=== PATIENT | male | born 1945 | race Caucasian/White ===

== ENCOUNTER 2018-03-12 11:58 | Emergency (ER) | payer MEDICARE, OTHER ==
[~2018-03-12] VITALS: Ht 172.7 cm; Wt 83.9 kg
[2018-03-12] MEDS ORDERED: PRAMIPEXOLE DIHY1 MG PO (12:09)
[2018-03-12] MEDS ORDERED: CARBIDOPA-LEVO1 EAC4 PO (12:09)
== END 2018-03-12 13:11 | disposition home or self-care (01) ==
LOC: ED 11:58
PROC: 0HQGXZZ Repair Left Hand Skin, External Approach (ICD-10-PCS; principal; 2018-03-12)
DX: S61.215A Laceration without foreign body of left ring finger without damage to nail, initial encounter (principal); Z23 Encounter for immunization; Z88.2 Allergy status to sulfonamides; Z88.8 Allergy status to other drugs, medicaments and biological substances; Z79.899 Other long term (current) drug therapy; W26.0XXA Contact with knife, initial encounter
CPT/HCPCS: 12001; 90471; 90715; 99282

== ENCOUNTER 2018-07-02 20:17 | Emergency (ER) | payer MEDICARE, OTHER ==
[~2018-07-02] VITALS: Ht 406.4 cm; Wt 74.8 kg
[~2018-07-02 20:17] MED LIST: CARBIDOPA-LEVO1 EAC4 PO; PRAMIPEXOLE DIHY1 MG PO
[2018-07-02] MEDS ORDERED: DOXYCYCLINE HY100 M3 PO (20:31)
== END 2018-07-02 22:30 | disposition home or self-care (01) ==
LOC: ED 20:17
PROC: 0HQ1XZZ Repair Face Skin, External Approach (ICD-10-PCS; principal; 2018-07-02)
DX: S01.412A Laceration without foreign body of left cheek and temporomandibular area, initial encounter (principal); S80.212A Abrasion, left knee, initial encounter; S80.211A Abrasion, right knee, initial encounter; S60.511A Abrasion of right hand, initial encounter; W18.30XA Fall on same level, unspecified, initial encounter; Z88.2 Allergy status to sulfonamides; Z88.8 Allergy status to other drugs, medicaments and biological substances; Z79.899 Other long term (current) drug therapy; Z79.2 Long term (current) use of antibiotics
CPT/HCPCS: 12013; 70450; 99283